=== PATIENT | male | born 1965 | race Caucasian/White ===

== ENCOUNTER → 2020-06-03 | Day surgery (SDC) | payer OTHER ==
[~2020-06-03] MED LIST: ALLOPURINOL100 MG PO; COLACE100 MG PO; HYDROCODON-ACE1 EAC2 PO; VENTOLIN HFA 66.7 GM INH; ZETIA10 MG PO; ZOCOR10 MG PO; ZOFRAN ODT 4 MG4 MG PO
== END | disposition home or self-care (01) ==
LOC: OR 05:50
DX: K63.5 Polyp of colon (principal); E78.5 Hyperlipidemia, unspecified; E66.01 Morbid (severe) obesity due to excess calories
CPT/HCPCS: J2704; J7120

== ENCOUNTER → 2020-06-26 | Day surgery (SDC) | payer OTHER | END | disposition home or self-care (01) | LOC: OR 06:51 | DX: K42.0 Umbilical hernia with obstruction, without gangrene (principal); E78.5 Hyperlipidemia, unspecified; K21.9 Gastro-esophageal reflux disease without esophagitis; F17.220 Nicotine dependence, chewing tobacco, uncomplicated; Z86.010 Personal history of colon polyps; Z79.899 Other long term (current) drug therapy | CPT/HCPCS: C1781; J0690; J2001; J2250; J2704; J2710; J3010; J7120 ==

== ENCOUNTER 2020-07-08 21:36 | Emergency (ER) | payer OTHER ==
[~2020-07-08 21:36] MED LIST changes: -ZOFRAN ODT 4 MG4 MG PO
[2020-07-08 23:13] LABS: BUN/CREATININE RATIO 21 (0-10)
[2020-07-08 23:26] LABS: HEMOGLOBIN 17.8 gm/dl (14.0-17.5); RED BLOOD COUNT 6.15 M/UL (4.20-5.50); WHITE BLOOD COUNT 10.8 K/UL (4.5-11.0)
[2020-07-09] MEDS ORDERED: ZOFRAN ODT 4 MG4 MG PO (01:13)
== END 2020-07-09 01:21 | disposition home or self-care (01) ==
LOC: ER1 21:36
PROVIDERS: Family Medicine
DX: R10.13 Epigastric pain (principal); R53.1 Weakness; R11.2 Nausea with vomiting, unspecified; Z90.89 Acquired absence of other organs; Z20.822 Contact with and (suspected) exposure to COVID-19
CPT/HCPCS: 0240U; 80053; 82550; 82553; 83690; 83874; 84484; 85025; 93005; 96374; 99284; J2405; J7030; Q9967

== ENCOUNTER → 2020-12-11 | Outpatient (CLI) | payer OTHER ==
[~2020-12-11] MED LIST changes: +ZOFRAN ODT 4 MG4 MG PO
== END ==
LOC: KOH-I 08:51
DX: R05.9 Cough, unspecified (principal)
CPT/HCPCS: 71046

== ENCOUNTER → 2021-01-17 | Outpatient (CLI) | payer OTHER | LOC: RAD 07:47 | DX: R13.10 Dysphagia, unspecified (principal); K22.4 Dyskinesia of esophagus; K21.9 Gastro-esophageal reflux disease without esophagitis | CPT/HCPCS: 74221 ==